=== PATIENT | male | born 1995 | race Caucasian/White ===

== ENCOUNTER 2020-05-22 20:35 | Emergency (ER) | payer OTHER ==
[~2020-05-22] VITALS: Ht 182.9 cm; Wt 131.5 kg
[2020-05-22 21:04] VITALS: BP 145/100; Ht 182.9 cm; Wt 131.5 kg
== END 2020-05-23 00:15 | disposition home or self-care (01) ==
LOC: ED 20:35
DX: S91.332A Puncture wound without foreign body, left foot, initial encounter (principal); W22.8XXA Striking against or struck by other objects, initial encounter; Y93.89 Activity, other specified; Y92.89 Other specified places as the place of occurrence of the external cause; Y99.8 Other external cause status
CPT/HCPCS: 90715